=== PATIENT | male | born 1960 | race Caucasian/White ===

== ENCOUNTER 2018-03-13 21:52 | Inpatient (IN) | payer BC ==
[~2018-03-13] VITALS: Ht 177.8 cm; Wt 93.0 kg
[~2018-03-13 21:52] MED LIST: ALLOPURINOL100 MG PO; BENADRYL50 MG PO; DILAUDID2 MG PO; FENOFIBRATE54 M1 PO; HYDROCODON-ACE1 EAC7 PO; INVOKANA100 MG PO; LOTREL 5/101 CAPSULE PO; LYRICA150 MG PO; MEDROL DOSEPAK4 MG PO; METFORMIN HCL500 MG PO; TIZANIDINE HCL4 M1 PO; TRULICITY1.5 MG/0.5 SC; VALIUM5 MG PO; VALTREX50 MG/ML PO; ZOFRAN4 MG PO
[2018-03-14] MEDS ORDERED: FAMCICLOVIR250 MG PO (11:22)
[2018-03-14 11:23] VITALS: BP 134/87
[2018-03-14 17:10] VITALS: BP 157/86
[2018-03-14 17:37] VITALS: BP 157/86
[2018-03-14 20:05] VITALS: BP 137/80
[2018-03-15 00:27] VITALS: BP 134/78
[2018-03-15 04:57] VITALS: BP 136/78
[2018-03-15 08:11] VITALS: BP 147/78
[2018-03-15 11:50] VITALS: BP 136/79
== END 2018-03-15 13:19 | disposition home or self-care (01) | DRG 460 ==
LOC: ENRESERV 21:52 → 2SOUTH 03-14 09:46 → ENRESERV 03-14 16:12 → 3EAST 03-14 17:02
PROVIDERS: Neurological Surgery
DX: M43.16 Spondylolisthesis, lumbar region (principal); I10 Essential (primary) hypertension; E11.9 Type 2 diabetes mellitus without complications; G47.30 Sleep apnea, unspecified; E78.5 Hyperlipidemia, unspecified; Z98.1 Arthrodesis status
CPT/HCPCS: 72100; 76000; 82948; 86850; 86900; 86901; 93005; G0378; J0131; J0330; J0690; J1170; J1885; J2250; J2405; J2710; J2930; J3010; J3480; J7643; P9045; Q0175; S0020